=== PATIENT | male | born 1975 | race Caucasian/White ===

== ENCOUNTER 2024-01-12 13:57 | Inpatient (IN) | payer BC ==
[2024-01-12] MEDS ORDERED: Sodium Chloride 0.9% 10 ML Syringe FLUSH PRN (14:24)
[2024-01-12] MEDS: Aspirin 81 MG Tab.Chew PO ONE (14:27)
[2024-01-12] MEDS: Labetalol 100 MG/20 ML MDV IVPUSH ONE (14:28)
[2024-01-12 14:33] LABS: BASOPHILS ABSOLUTE AUTO 0.1 K/mm3 (0.0-0.2); BASOPHILS PERCENT AUTO 0.6 % (0.0-1.0); EOSINOPHILS ABSOLUTE AUTO 0.2 K/mm3 (0.0-0.4); HEMATOCRIT 43.8 % (42.0-52.0); HEMOGLOBIN 13.2 gm/dl (14.0-18.0); IMMATURE GRAN ABSOLUTE AUTO 0.06 K/mm3 (0.00-0.05); IMMATURE GRAN PERCENT AUTO 0.6 % (0.0-0.4); LYMPHOCYTES ABSOLUTE AUTO 1.9 K/mm3 (1.0-4.8); LYMPHOCYTES PERCENT AUTO 19.5 % (24.0-44.0); MEAN CORPUSCULAR HEMOGLOBIN 19.2 pg (28.0-32.0); MEAN CORPUSCULAR HGB CONC 30.1 g/dl (32.0-36.0); MEAN CORPUSCULAR VOLUME 63.8 fl (83.0-99.0); MONOCYTES ABSOLUTE AUTO 0.8 K/mm3 (0.0-0.8); MONOCYTES PERCENT AUTO 7.7 % (0.0-8.0); NEUTROPHILS ABSOLUTE AUTO 6.7 K/mm3 (1.8-7.7); NEUTROPHILS PERCENT AUTO 69.6 % (41.0-71.0); PLATELET COUNT,PLT 191 K/mm3 (150-400); RED BLOOD CELL COUNT 6.87 M/mm3 (4.52-5.90); WHITE BLOOD CELL COUNT,WBC 9.69 K/mm3 (3.9-11.3)
[2024-01-12 15:04] LABS: PROTHROMBIN TIME 10.6 SECONDS (9.7-12.0)
[2024-01-12 15:05] LABS: PTT,PARTIAL THROMBOPLSTIN TIME 28.3 SECONDS (21.7-31.4)
[2024-01-12 15:20] LABS: A/G RATIO 1.2 (1-2); ALBUMIN 3.9 g/dl (3.4-5.0); ANION GAP 11.8 (5-15); BILIRUBIN TOTAL 0.4 mg/dL (0.2-1.0); EST CRCL DRUG DOSING (CG) 99.88 mL/min; POTASSIUM,K 3.8 mEq/L (3.5-5.1); PROTEIN TOTAL,TP 7.2 g/dl (6.4-8.2)
[2024-01-12] MEDS: hydrALAZINE 20 MG/ML SDV IVPUSH ONE (15:54)
[2024-01-12] MEDS ORDERED: Ondansetron 4 MG/2 ML SDV IV PRN (17:17)
[2024-01-12] MEDS: amLODIPine 5 MG Tab PO SCH (18:22)
[2024-01-12] MEDS: Nicotine 14 MG/24 Hr Patch TRDERM SCH (19:05)
[2024-01-12] MEDS: Acetaminophen 325 MG Tab PO PRN (20:09)
[2024-01-12] MEDS ORDERED: hydrALAZINE 20 MG/ML SDV IVPUSH PRN (21:00)
[2024-01-13 06:13] LABS: ALBUMIN 3.5 g/dl (3.4-5.0); ANION GAP 16.5 (5-15); BILIRUBIN TOTAL 0.4 mg/dL (0.2-1.0); BUN/CREATININE RATIO 13.3 (14-18); CALCIUM 8.7 mg/dL (8.5-10.1); CREATININE 1.2 mg/dL (0.7-1.3); EST CRCL DRUG DOSING (CG) 68.85 mL/min; POTASSIUM,K 3.5 mEq/L (3.5-5.1); TSH 1.359 uIU/mL (0.358-3.74)
[2024-01-13] MEDS: Enoxaparin 40 MG/0.4 ML Syringe SUBCUT SCH (08:46)
[2024-01-13] MEDS: hydrALAZINE 20 MG/ML SDV IVPUSH PRN ×2 (12:39→20:20)
[2024-01-13] MEDS: Lisinopril 10 MG Tab PO SCH (16:10)
[2024-01-13] MEDS: LORazepam 1 MG Tab PO ONE ×2 (16:11→21:26)
[2024-01-13] MEDS ORDERED: Sennosides/Docusate Sodium 50-8.6 MG Tab PO PRN (18:49)
[2024-01-13] MEDS: Potassium Chloride 20 MEQ Tab.ER PO ONE (18:51)
[2024-01-13] MEDS: atorvaSTATin 40 MG Tab PO SCH (20:30)
[2024-01-14 06:53] LABS: ANION GAP 15.9 (5-15); CALCIUM 9.1 mg/dL (8.5-10.1); EST CRCL DRUG DOSING (CG) 82.63 mL/min; MAGNESIUM 1.9 mg/dL (1.8-2.4); PHOSPHORUS 2.8 mg/dL (2.6-4.7); POTASSIUM,K 3.9 mEq/L (3.5-5.1)
[2024-01-14] MEDS: Metoprolol Succinate 25 MG Tab.ER PO SCH (08:03)
[2024-01-14] MEDS: Phosphorus #1 250 MG Tab PO ONE ×2 (17:29→17:35)
[2024-01-14] MEDS: Magnesium Sulfate/Water Premix 2 GM/50 ML BAG IV ONE (17:30)
[2024-01-15 06:22] LABS: ANION GAP 15.9 (5-15); CALCIUM 8.3 mg/dL (8.5-10.1); EST CRCL DRUG DOSING (CG) 82.63 mL/min; MAGNESIUM 2.1 mg/dL (1.8-2.4); POTASSIUM,K 3.9 mEq/L (3.5-5.1)
[2024-01-15] MEDS: Lisinopril 20 MG Tab PO SCH (08:29)
[2024-01-15] MEDS: Labetalol 100 MG/20 ML MDV IVPUSH PRN (09:33)
[2024-01-15] MEDS: hydrOXYzine HCl 25 MG Tab PO PRN (10:40)
[2024-01-15] MEDS: amLODIPine 5 MG Tab PO SCH (12:36)
== END 2024-01-15 17:35 | disposition home or self-care (01) | DRG 199 ==
LOC: JD.ED 13:57 → JD.MS 15:57
PROVIDERS: ADMIT Internal Medicine; ATTEND Student in an Organized Health Care Education/Training Program
DX: I16.0 Hypertensive urgency (principal); I21.A1 Myocardial infarction type 2; I63.81 Other cerebral infarction due to occlusion or stenosis of small artery; I10 Essential (primary) hypertension; E78.00 Pure hypercholesterolemia, unspecified; M54.2 Cervicalgia; R06.02 Shortness of breath; G47.33 Obstructive sleep apnea (adult) (pediatric); I16.1 Hypertensive emergency; I51.7 Cardiomegaly; R73.03 Prediabetes; F17.210 Nicotine dependence, cigarettes, uncomplicated; Z79.899 Other long term (current) drug therapy
CPT/HCPCS: 36415; 70450; 70450-26; 71045; 71045-26; 71046; 71046-26; 80048; 80053; 82465; 83036; 83718; 83721; 83735; 83880; 84100; 84443; 84484; 85025; 85610; 85730; 93005; 93306; 96374; 96375; 99285-25; A9270-GY; J0360; J1650; J1921; J3475